=== PATIENT | male | born 2000 | race African-American/Black ===

== ENCOUNTER 2023-12-09 19:06 | Emergency (ER) | payer SELFPAY ==
[2023-12-09 19:37] VITALS: BP 138/74
[2023-12-09 21:33] VITALS: BMI 31.1
[2023-12-09] MEDS: FIRST-MOUTHWASH BLM SUSPENSION 5 ML PO (22:54)
--- NOTE | 2023-12-09 23:41 | ED.GENMED ---
History of Present Illness
General
Chief Complaint: Throat Problem
Source: patient and spouse
Exam Limitations: none
Time Seen by Provider: 12/09/23 22:13
Nursing documentation reviewed up to this point in time: agreed with
Travel History
Have you had any contact with someone who has COVID-19?: No
Do you have any symptoms of coronavirus? Fever > 100 degrees, chills, cough, shortness of breath, sore throat, loss of taste or smell, muscle aches, or headache?: No
History of Present Illness
History of Present Illness:
Patient is a 23-year-old male who presents to the emergency department with a foreign body sensation after eating tilapia on the left side of his throat. Patient denies any difficulty breathing or swallowing. Patient denies drooling. Patient
denies any change in voice. Patient denies any previous history of similar episodes. This occurred at 7 PM tonight.
Past History
Past History
ED Past Medical History: None
Social History
Tobacco: Non-smoker
Review of Systems
Review of Systems
All Other Systems: Not applicable
Phy Exam
Physical Exam
Physical Exam:
Physical Exam
General: No apparent distress, alert and appropriate, well nourished, well hydrated
HENT: Normocephalic, supple with no lymphadenopathy, no thyromegaly. Oropharynx is clear
Eyes: Clear sclera, conjuctiva without injection
Heart: Regular rhythm and rate. No S3, S4. No murmur.
Lungs: No respiratory distress, no stridor, lung sounds clear and equal bilaterally
Neuro: Alert and oriented x 3, CN II - XII intact, no motor focality, no cerebellar dysfunction
Skin: no rash
Psychiatric: well kept. interactive and cooperative
Extremities: No edema, cyanosis
Course
Orders/Labs/Results
Orders:
Orders
12/09/23 22:16
Soft Tissue, Neck [CR Soft Tissue Neck ] Urgent
Comment:
Reason For Exam: fishbone on left
12/09/23 22:34
Mag&Al/Sim/Diphenhyd/Lidocaine [First-Mouthwash Blm Suspension] 5 ml PO NOW STA
Vital Signs
Initial and Last Documented VS:
Initial Vital Signs
Temp Pulse Resp BP Pulse Ox
98 F 87 20 138/74 97
12/09/23 19:37 12/09/23 19:37 12/09/23 19:37 12/09/23 19:37 12/09/23 19:37
Last Documented Vital Signs
Temp Pulse Resp BP Pulse Ox
98 F 87 20 138/74 97
12/09/23 19:37 12/09/23 19:37 12/09/23 19:37 12/09/23 19:37 12/09/23 19:37
*Radiology
Radiology exam reviewed: radiology read reviewed (Soft tissue neck unremarkable)
*Pulse Oximetry
Patient hypoxic: no
*EKG
Interpreted by ED Provider?: NA
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
Rate: Assembler Cl[employer] Sunglasses- N/A
*Critical Care Note
Total Time (30-74mins, 75-104mins- exclusive of procedures): Not Applicable
Update Note
Update Note:
Patient not want to wait any longer and certainly had waited a long time. I was considering doing a nasolaryngoscopy on the patient however we will see how he feels in the morning and if still with foreign body sensation to return.
ED Attending Note
-
Portions of this chart may have been created with voice recognition software.� Occasional wrong word or��sound alike� substitutions may have occurred due to the inherent limitations of voice recognition software.
Discharge Plan
Departure
Patient Disposition: Home (Routine Discharge)
Date of Disposition: 12/09/23
Time of Disposition: 23:41
Patient with high blood pressure during this ER visit?: No
Condition: Good
Covid-19: Not Applicable
Discharge Problem:
Foreign body, swallowed
Instructions: Swallowed Objects, Adult (DC), Dysphagia (DC)
Prescriptions:
No Action
No Current Medications
0
Referrals:
NONE,* [Family Provider] -
Activity Restrictions/Additional Instructions:
If still have the sensation in the morning please return for endoscopy.
Interventions
Interventions:
*Risk Screen - Suicide Last Done: 12/09/23 19:37
*General Assessment Last Done: 12/09/23 19:37
*Neglect/Abuse Screening Last Done: 12/09/23 19:37
ED- Fall Risk Assessment Last Done: 12/09/23 19:37
*ED COVID-19 Vaccine History Last Done: 12/09/23 19:37
*Nursing Disposition Last Done: 12/09/23 23:50
ED-EENT Assessment Last Done: 12/09/23 21:33
ED- Pulmonary Assessment Last Done: 12/09/23 21:33
Discharge Date and Time
Discharge Date/Time: 12/09/23 23:51
== END 2023-12-09 23:51 | disposition home or self-care (01) ==
LOC: EMR 19:06
PROVIDERS: EMERGENCY PHYSICIAN Emergency Medicine
DX: R09.A2 Foreign body sensation, throat (principal)
CPT/HCPCS: 99283; 70360